=== PATIENT | male | born 1975 | race African-American/Black ===

== ENCOUNTER 2023-12-13 14:13 | Emergency (ER) | payer MEDICAID ==
[~2023-12-13] VITALS: Ht 175.3 cm; Wt 77.1 kg
[2023-12-13 14:24] VITALS: O2SAT 99
[2023-12-13] MEDS ORDERED: METF-416 MT (15:10)
[2023-12-13 15:16] VITALS: BP 150/89; PULSE 86; RESP 16; TEMP 36.78072; O2SAT 99
== END 2023-12-13 15:15 | disposition home or self-care (01) ==
LOC: ER 14:44
DX: R42 Dizziness and giddiness (principal); I10 Essential (primary) hypertension
CPT/HCPCS: 82962; 99283